=== PATIENT | male | born 1960 | race Caucasian/White ===

== ENCOUNTER 2018-06-26 14:22 | Outpatient (CLI) | payer OTHER | END 2018-06-26 14:23 | disposition home or self-care (01) | LOC: SC 14:22 | PROVIDERS: ATTEND Internal Medicine Pulmonary Disease | DX: R06.83 Snoring (principal) | CPT/HCPCS: 99203; 99212 ==

== ENCOUNTER 2018-08-13 20:05 | Outpatient (CLI) | payer OTHER | END 2018-08-13 20:06 | disposition home or self-care (01) | LOC: SC 20:05 | PROVIDERS: ATTEND Internal Medicine Pulmonary Disease | DX: G47.31 Primary central sleep apnea (principal) | CPT/HCPCS: 95810 ==

== ENCOUNTER 2018-09-11 08:22 | Outpatient (CLI) | payer OTHER | END 2018-09-11 08:23 | disposition home or self-care (01) | LOC: SC 08:22 | PROVIDERS: ATTEND Internal Medicine Pulmonary Disease | DX: G47.31 Primary central sleep apnea (principal) | CPT/HCPCS: 99212; 99214 ==

== ENCOUNTER 2018-11-05 19:16 | Outpatient (CLI) | payer OTHER | END 2018-11-05 19:17 | disposition home or self-care (01) | LOC: SC 19:16 | PROVIDERS: ATTEND Internal Medicine Pulmonary Disease | DX: G47.33 Obstructive sleep apnea (adult) (pediatric) (principal) | CPT/HCPCS: 95811 ==

== ENCOUNTER 2022-12-07 19:25 | Emergency (ER) | payer OTHER ==
[2022-12-07 20:00] LABS: BASOPHILS % (AUTO) 0.4 %; EOSINOPHILS # (AUTO) 0.1 10^3/uL (0.0-0.7); EOSINOPHILS % (AUTO) 1.1 %; HCT - HEMATOCRIT 36.5 % (42.0-52.0); HGB - HEMOGLOBIN 11.8 g/dL (14.0-18.0); LYMPHOCYTES # (AUTO) 0.6 10^3/uL (1.5-3.5); LYMPHOCYTES % (AUTO) 5.9 %; MEAN CORPUSCULAR HEMOGLOBIN 29.9 pg (27.0-31.0); MEAN CORPUSCULAR HGB CONC 32.3 g/dL (32.0-36.0); MEAN CORPUSCULAR VOLUME 92.6 fL (80.0-94.0); MEAN PLATELET VOLUME 9.8 fL (7.4-11.4); MONOCYTES # (AUTO) 0.6 10^3/uL (0.0-1.0); MONOCYTES % (AUTO) 5.3 %; NEUTROPHILS # (AUTO) 9.4 10^3/uL (1.5-6.6); NEUTROPHILS % (AUTO) 86.9 %; PLT - PLATELET COUNT 197 10^3/uL (130-450); RED BLOOD COUNT 3.94 10^6/uL (4.70-6.10); RED CELL DISTRIBUTION WIDTH 11.8 % (12.0-15.0); WHITE BLOOD COUNT 10.8 x10^3/uL (4.8-10.8)
[2022-12-07] MEDS ORDERED: ALBUTEROL NEB 2.5 MG/3 ML INH ONE (20:12)
[2022-12-07 20:14] LABS: ALBUMIN 4.6 g/dL (3.2-5.5); ALBUMIN/GLOBULIN RATIO 1.4 (1.0-2.2); BILIRUBIN,TOTAL 0.8 mg/dL (0.2-1.0); CALCIUM 9.3 mg/dL (8.5-10.3); CREATININE 2.6 mg/dL (0.6-1.2); POTASSIUM 4.1 mmol/L (3.5-5.0)
[2022-12-07] MEDS ORDERED: MORPHINE 2 MG/ML CARPUJECT IVP STA ×2 (20:47→23:33)
[2022-12-07] MEDS ORDERED: SODIUM CHLORIDE 0.9% 1,000 ML IV STA ×2 (20:47→23:33)
[2022-12-07] MEDS ORDERED: iohexoL-300 100 ML VIAL ONE ×2 (21:11→21:21)
[2022-12-07 21:34] LABS: BILIRUBIN,URINE NEGATIVE (NEGATIVE); GLUCOSE, URINE (UA) NEGATIVE (NEGATIVE); KETONES,URINE (UA) NEGATIVE (NEGATIVE); LEUKOCYTE ESTERASE, URINE NEGATIVE (NEGATIVE); NITRITE,URINE NEGATIVE (NEGATIVE); OCCULT BLOOD,URINE NEGATIVE (NEGATIVE); PROTEIN,URINE NEGATIVE (NEGATIVE); UROBILINOGEN,URINE 0.2 (NORMAL) E.U./dL (NORMAL)
[2022-12-07 21:35] LABS: CLARITY,URINE CLEAR (CLEAR)
[2022-12-07] MEDS ORDERED: iohexoL-300 100 ML VIAL IVP ONE (22:16)
--- NOTE | 2022-12-07 23:18 | CT Report ---
PROCEDURE: ABDOMEN/PELVIS W INDICATIONS: RLQ pain CONTRAST: Omni 300 100 ml TECHNIQUE: After the administration of intravenous contrast, 5 mm thick sections acquired from the diaphragms to the symphysis. 5 mm thick coronal and sagittal reformats were acquired. For radiation dose reducti on, the following was used: automated exposure control, adjustment of mA and/or kV according to tylor ent size. COMPARISON: None. FINDINGS: Image quality: Excellent. Lung bases:There is minimal dependent atelectasis. Heart: Heart is normal in size. There is mild wall thickening of the visualized distal esophagus. ABDOMEN: Liver: No mass lesion. Gallbladder:The gallbladder is distended without calcified gallstones or wall thickening. Biliary ducts: No biliary ductal dilatation. Pancreas: Unremarkable. Spleen: Normal in size. Adrenal Glands: No adrenal nodules. Kidneys and Ureters: No hydronephrosis. The kidneys are mildly atrophic in size bilaterally. Multipl e bilateral nonspecific renal stones are demonstrated including 5 nonobstructing stones in the right kidney with the largest measuring up to 0.4 cm. On the left, there are proximal 5 nonspecific renal s tones with the largest measuring up to 0.5 cm. This demonstrates attenuation values of approximately 500-600 Hounsfield units. There is mild nonspecific perinephric stranding bilaterally. Stomach and Bowel: Stomach and small bowel loops are normal in caliber and wall thickness. Appendix appears within normal limits. There is colonic diverticulosis without acute diverticulitis. There is prominent bowel wall thickening in the rectosigmoid colon. Peritoneum: No abnormal intraperitoneal fluid. No free air. Ventral Wall: No hernia. Abdominal Nodes: No retroperitoneal or mesenteric adenopathy by size criteria. Vessels: Aorta and inferior vena cava are normal in size. PELVIS: Pelvic Organs:There is moderate enlargement of the prostate and seminal vesicles. Bladder: Unremarkable. Pelvic Nodes: No enlarged lymph nodes. Miscellaneous: No inguinal hernias. Bones: Visualized osseous structures demonstrate no suspicious lesions. IMPRESSION: 1. Pulmonary bowel wall thickening in the rectosigmoid colon is nonspecific and may reflect a proctoc olitis. Recommend correlation clinically and consider further evaluation with a colonoscopy. 2. Colonic diverticulosis without acute diverticulitis. 3. No evidence of appendicitis. 4. Bilateral nephrolithiasis without obstructive uropathy. Reviewed by: Dieter Hernandez MD on 12/07/2022 11:17 PM PDT Approved by: Dieter Hernandez MD on 12/07/2022 11:17 PM PDT Station ID: [id number]
[2022-12-07] MEDS ORDERED: ONDANSETRON 4 MG/2 ML VIAL IVP STA (23:24)
--- NOTE | 2022-12-08 00:07 | ED Physician Documentation ---
History of Present Illness - Stated complaint Stated Complaint: STOMACH PX - Chief complaint Chief Complaint: Abd Pain - History obtained from History obtained from: Patient - Additonal information Additional information: 62yM p/w n/v/abd pain in RLQ sudden onset 10am today. also with chills. denies other symptoms Review of Systems Constitutional: reports: Chills, Myalgias. denies: Fever Cardiac: denies: Chest pain / pressure Respiratory: denies: Dyspnea GI: reports: Abdominal Pain, Nausea, Vomiting. denies: Constipation, Diarrhea : denies: Dysuria PD PAST MEDICAL HISTORY - Present Medications Home Medications: Ambulatory Orders Medication Instructions Recorded Confirmed Apixaban [Eliquis] 2.5 mg PO DAILY 12/07/22 12/07/22 - Allergies Allergies/Adverse Reactions: Allergies Allergy/AdvReac Type Severity Reaction Status Date / Time No Known Drug Allergies Allergy Verified 12/07/22 19:33 PD ED PE NORMAL - Vitals Vital signs reviewed: Yes - General General: Alert and oriented X 3, No acute distress, Well developed/nourished - HEENT HEENT: Atraumatic, PERRL, EOMI - Neck Neck: Supple, no meningeal sign - Cardiac Cardiac: RRR - Respiratory Respiratory: No respiratory distress, Clear bilaterally - Abdomen Abdomen: Non tender, Non distended, Other (RLQ mildly tender to palpation) - Back Back: No CVA TTP - Derm Derm: Normal color, Warm and dry Results - Vitals Vitals: Vital Signs - 24 hr 12/07/22 12/07/22 12/07/22 19:31 21:16 23:40 Temperature 36.6 C Heart Rate 80 75 Respiratory 16 20 Rate Blood Pressure 121/66 125/72 O2 Saturation 98 95 100 Oxygen O2 Source Room air - Labs Labs: Laboratory Tests 12/07/22 12/07/22 12/07/22 19:55 19:55 21:25 WBC 10.8 RBC 3.94 L Hgb 11.8 L Hct 36.5 L MCV 92.6 MCH 29.9 MCHC 32.3 RDW 11.8 L Plt Count 197 MPV 9.8 Neut # (Auto) 9.4 H Lymph # (Auto) 0.6 L Cottle # (Auto) 0.6 Eos # (Auto) 0.1 Baso # (Auto) 0.0 Absolute Nucleated RBC 0.00 Nucleated RBC % 0.0 Sodium 135 Potassium 4.1 Chloride 98 L Carbon Dioxide 24 Anion Gap 13.0 BUN 46 H Creatinine 2.6 H Estimated GFR (MDRD) 25 L Glucose 159 H Calcium 9.3 Total Bilirubin 0.8 AST 26 ALT 13 Alkaline Phosphatase 117 Total Protein 8.0 Albumin 4.6 Globulin 3.4 Albumin/Globulin Ratio 1.4 Lipase 49 Urine Color YELLOW Urine Clarity CLEAR Urine pH 6.0 Ur Specific [place] 1.010 Urine Protein NEGATIVE Urine Glucose (UA) NEGATIVE Urine Ketones NEGATIVE Urine Occult Blood NEGATIVE Urine Nitrite NEGATIVE Urine Bilirubin NEGATIVE Urine Urobilinogen 0.2 (NORMAL) Ur Leukocyte Esterase NEGATIVE Ur Microscopic Review NOT INDICATED Urine Culture Comments NOT INDICATED PD Medical Decision Making - ED course ED course: 62yM presented with n/v and abd pain. cbc, abdominal panel ordered. He has some anemia (hb 11.8) but no prior labs to compare it to. also with Cre 2.6 without prior labs. u/a ordered - no signs of blood in urine or infection. His CT showed BL stones in the kidneys but no movement down the ureters. also with incidental findings. discussed results of CT and need for f/u colonoscopy. suspect viral stomach virus as cause for his symptoms. patient feeling better s/p IV morphine and zofran as well as 2L IVF. return precautions given. plan to f/u with GI. Departure - Departure Disposition: 01 Home, Self Care Clinical Impression: Abdominal pain, Vomiting, Kidney disease, Anemia Condition: Stable Instructions: Abdominal Pain Comments: You were seen in the emergency department for vomiting and abdominal pain. You have anemia on your lab work with hemoglobin of 11.8 as well as a creatinine of 2.6, indicating kidney disease. Patient follow-up with your primary care provider in regards to this and you will likely need follow-up lab work if this is new. Your CT report should be brought to your appointment as well and you will likely need a follow-up colonoscopy. Return to the emergency department for new or worsening symptoms or if you have other concerns.
[2022-12-08] MEDS ORDERED: ONDANSETRON ODT 4 MG Prepack 2 TL PRN (00:11)
[2022-12-08 00:46] VITALS: BP 116/74
== END 2022-12-08 00:55 | disposition home or self-care (01) ==
LOC: ED 19:25
DX: N28.9 Disorder of kidney and ureter, unspecified (principal); R10.9 Unspecified abdominal pain; R11.10 Vomiting, unspecified; D64.9 Anemia, unspecified
CPT/HCPCS: 36415; 74177; 80053; 81003; 83690; 85025; 96374; 96375; 96376; 99283; 99284; Q9967; 81001; 87086

== ENCOUNTER 2023-04-12 16:18 | Outpatient (CLI) | payer OTHER ==
--- NOTE | 2023-04-12 16:46 | XRAY Report ---
PROCEDURE: Wrist 3 View LT INDICATIONS: OTHER SPECIFIED SPRIAN OF LEFT WRIST. Fall. Pain. TECHNIQUE: 3 views of the wrist were acquired. COMPARISON: None. FINDINGS: Bones: Mildly displaced fracture of the distal radius. Fracture extends through the base of the radi al styloid process into the radiocarpal joint. Soft tissues: No suspicious soft tissue calcifications or masses. IMPRESSION: Mildly displaced, intra-articular, distal radius fracture. Reviewed by: Caryl Srivastava MD, PhD on 04/12/2023 4:45 PM PDT Approved by: Caryl Srivastava MD, PhD on 04/12/2023 4:45 PM PDT Station ID: [id number]
== END 2023-04-12 16:19 | disposition home or self-care (01) ==
LOC: DI 16:18
PROVIDERS: ATTEND Physician Assistant Medical
DX: S52.572A Other intraarticular fracture of lower end of left radius, initial encounter for closed fracture (principal)

== ENCOUNTER 2023-08-30 12:32 | Outpatient (CLI) | payer OTHER | END 2023-08-30 12:33 | disposition home or self-care (01) | LOC: DI 12:32 | DX: Z01.810 Encounter for preprocedural cardiovascular examination (principal); I50.9 Heart failure, unspecified; I25.5 Ischemic cardiomyopathy; I51.7 Cardiomegaly; Z95.0 Presence of cardiac pacemaker | CPT/HCPCS: 93306 ==